=== PATIENT | male | born 1950 | race Hispanic/Latino ===

== ENCOUNTER 2018-01-09 14:48 | Inpatient (IN) | payer OTHER ==
[~2018-01-09] VITALS: Ht 175.3 cm; Wt 91.5 kg
[2018-01-09 16:19] VITALS: BP 156/81
[2018-01-09] MEDS ORDERED: METO50TA18 PO (16:54)
[2018-01-09] MEDS ORDERED: METF10004 PO (16:54)
[2018-01-09] MEDS ORDERED: LOSA100T29 PO (16:54)
[2018-01-09] MEDS ORDERED: INSU100V12 SQ (16:54)
[2018-01-09] MEDS ORDERED: ATOR-2 PO (16:54)
[2018-01-10] VITALS (23 sets, daily range): BP systolic 102–179; BP diastolic 55–85
[2018-01-10 09:39] LABS: APPEARANCE,URINE Clear (CLEAR); BILIRUBIN,URINE Negative (NEGATIVE); COLOR,URINE Yellow (YELLOW); GLUCOSE, URINE (UA) Negative (NEGATIVE); KETONES,URINE Negative (NEGATIVE); LEUKOCYTE ESTERASE ,URINE Negative (NEGATIVE); NITRATE,URINE Negative (NEGATIVE); OCCULT BLOOD,URINE Negative (NEGATIVE); PROTEIN,URINE Negative (NEGATIVE); UROBILINOGEN,URINE 0.2 mg/dL (0.2-1.0)
[2018-01-10 09:39] LABS: BASOPHILS % (AUTO) 0.4 % (0.0-5.0); EOSINOPHILS % (AUTO) 4.5 % (0.0-8.0); HEMATOCRIT 37.7 % (42-54); LYMPHOCYTES % (AUTO) 18.7 % (21.0-51.0); MEAN CORPUSCULAR HEMOGLOBIN 33.6 pg (27.0-33.0); MEAN CORPUSCULAR HGB CONC 35.5 g/dL (32.0-36.0); MEAN CORPUSCULAR VOLUME 94.7 fL (79-99); MONOCYTES % (AUTO) 9.5 % (3.0-13.0); NEUTROPHILS % (AUTO) 66.9 % (40.0-77.0); PLATELET COUNT (AUTO) 104 K/uL (130-400); RED BLOOD CELL COUNT(AUTO) 3.98 MIL/uL (4.50-6.20); RED CELL DISTRIBUTION WIDTH 14.2 % (11.0-15.5); WHITE BLOOD COUNT (AUTO) 5.4 K/uL (4.8-10.8)
[2018-01-10 09:47] LABS: CREATININE 1.5 mg/dL (0.5-1.5)
[2018-01-10 09:49] LABS: INR 1.18 (0.85-1.15); PARTIAL THROMBOPLASTIN TIME 27.9 SEC (26.3-35.5); PROTHROMBIN TIME 12.3 SEC (9.6-11.6)
[2018-01-10] MEDS ORDERED: SODIUM CHLORIDE 0.9% 1000ML 1,000 ML IV ONE (12:51)
[2018-01-10] MEDS: CEFAZOLIN SODIUM 1 GM VIAL ONE ×2 (13:07→15:20)
[2018-01-10] MEDS ORDERED: CELECOXIB 200 MG CAP ONE (13:34)
[2018-01-10] MEDS ORDERED: ACETAMINOPHEN EXTRA STRENGTH 500 MG TABLET ONE (13:34)
[2018-01-10] MEDS ORDERED: OXYCODONE HCL 10 MG TAB.SR.12H PO ONE (13:35)
[2018-01-10] MEDS ORDERED: CEFAZOLIN SODIUM 1 GM VIAL ONE (13:46)
[2018-01-10] MEDS ORDERED: TRANEXAMIC ACID 1000MG/10ML IV ONE (13:46)
[2018-01-10] MEDS ORDERED: VECURONIUM BROMIDE 10 MG ML IV ONE (14:31)
[2018-01-10] MEDS ORDERED: ROPIVACAINE 0.5% 5MG/ML 30ML IJ ONE (14:32)
[2018-01-10] MEDS ORDERED: LIDOCAINE PF 2% 5ML ABBOJECT ONE (14:33)
[2018-01-10] MEDS ORDERED: DEXAMETHASONE SOD PHOSPHATE 10MG/ML 1ML VIAL ONE (14:33)
[2018-01-10] MEDS ORDERED: GLYCOPYRROLATE 0.2 MG/ML 5 ML VIAL ONE (14:33)
[2018-01-10] MEDS ORDERED: MIDAZOLAM HCL 1 MG/ML 2ML VIAL ONE (14:33)
[2018-01-10] MEDS ORDERED: NEOSTIGMINE 5MG/5ML SYR IV ONE (14:33)
[2018-01-10] MEDS ORDERED: PROPOFOL 10 MG/ML 20ML VIAL IV ONE (14:34)
[2018-01-10] MEDS ORDERED: FENTANYL CITRATE PF 50 MCG/1 ML 2ML VIAL ONE ×2 (14:34→15:53)
[2018-01-10] MEDS ORDERED: EPHEDRINE SULFATE 50 MG/ML AMPULE ONE (15:42)
[2018-01-10] MEDS ORDERED: LIDOCAINE HCL-MPF 1% 2ML VIAL IVP PRN (17:45)
[2018-01-10] MEDS ORDERED: TRAMADOL HCL 50 MG TABLET PO PRN (17:45)
[2018-01-10] MEDS ORDERED: PROMETHAZINE HCL 25 MG/ML 1ML AMPULE IM PRN (17:45)
[2018-01-10] MEDS ORDERED: TEMAZEPAM 15 MG CAPSULE PO PRN (17:45)
[2018-01-10] MEDS ORDERED: POTASSIUM CHLORIDE 10% ELIXIR 20 MEQ/15 ML UDCUP PO PRN (17:45)
[2018-01-10] MEDS ORDERED: DIPHENHYDRAMINE HCL 25 MG CAPSULE PO PRN (17:45)
[2018-01-10] MEDS ORDERED: DiphenhydrAMINE HCL 50 MG/ML VIAL IVP PRN (17:45)
[2018-01-10] MEDS ORDERED: CALCIUM CARBONATE 500 MG TABLET PO PRN (17:45)
[2018-01-10] MEDS ORDERED: POTASSIUM CHLORIDE 20MEQ/100ML 100 ML IV PRN (17:45)
[2018-01-10] MEDS ORDERED: POTASSIUM CHLORIDE 20 MEQ ERTAB PO PRN (17:45)
[2018-01-10] MEDS ORDERED: FERROUS FUMARATE 324 MG TABLET PO PRN (17:45)
[2018-01-10] MEDS ORDERED: OXYCODONE HCL 5 MG TAB PO PRN ×2 (17:45)
[2018-01-10] MEDS ORDERED: ONDANSETRON HCL MDV 20ML 2 MG/ML VIAL ONE (18:41)
[2018-01-10] MEDS: CELECOXIB 200 MG CAP PO SCH (20:19)
[2018-01-10] MEDS: ASPIRIN 325 MG TABLET PO SCH (20:19)
[2018-01-10] MEDS: PREGABALIN 75 MG CAPSULE PO SCH (20:19)
[2018-01-10] MEDS: ACETAMINOPHEN 325 MG TAB PO SCH (20:20)
[2018-01-10] MEDS: FAMOTIDINE 20MG TAB 20 MG TAB PO SCH (20:20)
[2018-01-10] MEDS: SODIUM CHLORIDE 0.9% 1000ML 1,000 ML IV SCH (20:21)
[2018-01-10] MEDS: INSULIN HUMULIN R 100 UNIT/ML 3ML SQ SCH (21:16)
[2018-01-10] MEDS: INSULIN GLARGINE 100 UNITS/ML 10 ML VIAL SQ SCH (21:17)
[2018-01-10] MEDS: METOPROLOL TARTRATE 25 MG TAB PO SCH (21:22)
[2018-01-10] MEDS: ATORVASTATIN CALCIUM 40 MG TABLET PO SCH (21:22)
[2018-01-10] MEDS: METFORMIN HCL 500 MG TABLET PO SCH (21:23)
[2018-01-10] MEDS ORDERED: CEFAZOLIN 2GM / 50 ML 50 ML IV SCH (22:45)
[2018-01-10] MEDS: CEFAZOLIN SODIUM 1 GM VIAL IVP SCH (23:43)
[2018-01-11 00:20] VITALS: BP 146/78
[2018-01-11] MEDS: ACETAMINOPHEN 325 MG TAB PO SCH ×5 (01:47→23:05)
[2018-01-11] MEDS: SODIUM CHLORIDE 0.9% 1000ML 1,000 ML IV SCH ×2 (04:34→13:35)
[2018-01-11 05:33] LABS: HEMATOCRIT 31.6 % (42-54); MEAN CORPUSCULAR HEMOGLOBIN 32.8 pg (27.0-33.0); MEAN CORPUSCULAR VOLUME 96.5 fL (79-99); PLATELET COUNT (AUTO) 83 K/uL (130-400); RED BLOOD CELL COUNT(AUTO) 3.27 MIL/uL (4.50-6.20); WHITE BLOOD COUNT (AUTO) 4.5 K/uL (4.8-10.8)
[2018-01-11 05:50] LABS: CREATININE 1.7 mg/dL (0.5-1.5); POTASSIUM 4.5 mmol/L (3.5-5.1)
[2018-01-11] MEDS: CEFAZOLIN SODIUM 1 GM VIAL IVP SCH (06:18)
[2018-01-11] MEDS: INSULIN HUMULIN R 100 UNIT/ML 3ML SQ SCH ×4 (06:25→20:51)
[2018-01-11 07:00] VITALS: BP 131/65
[2018-01-11] MEDS: INSULIN GLARGINE 100 UNITS/ML 10 ML VIAL SQ SCH ×2 (08:11→20:50)
[2018-01-11] MEDS: PREGABALIN 75 MG CAPSULE PO SCH ×2 (08:12→19:44)
[2018-01-11] MEDS: POLYETHYLENE GLYCOL 3350 17 GM POWD.PACK PO SCH ×2 (08:12→08:56)
[2018-01-11] MEDS: METFORMIN HCL 500 MG TABLET PO SCH ×2 (08:12→17:21)
[2018-01-11] MEDS: ASPIRIN 325 MG TABLET PO SCH ×2 (08:13→19:42)
[2018-01-11] MEDS: FAMOTIDINE 20MG TAB 20 MG TAB PO SCH ×2 (08:13→19:42)
[2018-01-11] MEDS: METOPROLOL TARTRATE 25 MG TAB PO SCH ×2 (08:13→19:42)
[2018-01-11] MEDS: LOSARTAN 100 MG TABLET PO SCH (08:13)
[2018-01-11] MEDS: TAMSULOSIN HCL 0.4 MG CAP.ER.24H PO SCH (08:13)
[2018-01-11] MEDS: CELECOXIB 200 MG CAP PO SCH ×2 (08:13→19:42)
[2018-01-11 11:14] VITALS: BP 118/67
[2018-01-11] MEDS ORDERED: PSYLLIUM SEED 1 EACH PACKET PO SCH (12:00)
[2018-01-11 16:36] VITALS: BP 127/64
[2018-01-11] MEDS: ATORVASTATIN CALCIUM 40 MG TABLET PO SCH (19:42)
[2018-01-11 19:51] VITALS: BP 131/63
[2018-01-11 23:38] VITALS: BP 105/62
[2018-01-12 04:00] VITALS: BP 118/66
[2018-01-12] MEDS: ACETAMINOPHEN 325 MG TAB PO SCH ×3 (04:56→16:45)
[2018-01-12] MEDS: INSULIN HUMULIN R 100 UNIT/ML 3ML SQ SCH ×3 (05:47→16:30)
[2018-01-12 06:24] LABS: HEMATOCRIT 30.1 % (42-54); MEAN CORPUSCULAR HEMOGLOBIN 33.2 pg (27.0-33.0); MEAN CORPUSCULAR HGB CONC 34.7 g/dL (32.0-36.0); MEAN CORPUSCULAR VOLUME 95.7 fL (79-99); PLATELET COUNT (AUTO) 84 K/uL (130-400); RED BLOOD CELL COUNT(AUTO) 3.14 MIL/uL (4.50-6.20); WHITE BLOOD COUNT (AUTO) 5.8 K/uL (4.8-10.8)
[2018-01-12 06:31] LABS: CREATININE 1.9 mg/dL (0.5-1.5); POTASSIUM 4.1 mmol/L (3.5-5.1)
[2018-01-12 07:57] VITALS: BP 118/70
[2018-01-12] MEDS: INSULIN GLARGINE 100 UNITS/ML 10 ML VIAL SQ SCH (09:17)
[2018-01-12] MEDS: FAMOTIDINE 20MG TAB 20 MG TAB PO SCH (09:22)
[2018-01-12] MEDS: METFORMIN HCL 500 MG TABLET PO SCH ×2 (09:22→16:45)
[2018-01-12] MEDS: ASPIRIN 325 MG TABLET PO SCH (09:22)
[2018-01-12] MEDS: METOPROLOL TARTRATE 25 MG TAB PO SCH (09:22)
[2018-01-12] MEDS: CELECOXIB 200 MG CAP PO SCH (09:22)
[2018-01-12] MEDS: LOSARTAN 100 MG TABLET PO SCH (09:22)
[2018-01-12] MEDS: TAMSULOSIN HCL 0.4 MG CAP.ER.24H PO SCH (09:22)
[2018-01-12] MEDS: PREGABALIN 75 MG CAPSULE PO SCH (09:22)
[2018-01-12] MEDS ORDERED: HYDR-309 PO (10:46)
[2018-01-12] MEDS ORDERED: ASPI-1012 PO (10:46)
[2018-01-12 11:39] VITALS: BP 131/75
[2018-01-12 16:00] VITALS: BP 113/73
[2018-01-12] MEDS ORDERED: BISACODYL 5 MG TABLET.DR PO PRN (17:45)
[2018-01-13] MEDS ORDERED: BISACODYL 10 MG SUPP.RECT RC PRN (17:45)
== END 2018-01-12 18:10 | disposition home health service (06) | DRG 470 ==
LOC: EDSTATUS 15:00 → DAHIP 01-10 12:25 → 4AH 01-10 18:38
PROVIDERS: ADMIT Orthopaedic Surgery; ATTEND Orthopaedic Surgery
PROC: 0SR90JZ Replacement of Right Hip Joint with Synthetic Substitute, Open Approach (ICD-10-PCS; principal; 2018-01-10 11:00)
DX: M16.11 Unilateral primary osteoarthritis, right hip (principal); Z96.641 Presence of right artificial hip joint; E11.9 Type 2 diabetes mellitus without complications; I10 Essential (primary) hypertension; E78.5 Hyperlipidemia, unspecified; Z98.42 Cataract extraction status, left eye; Z98.41 Cataract extraction status, right eye
CPT/HCPCS: 36415; 73503; 80048; 81003; 82948; 85025; 85027; 85610; 85730; 88304; 88311; A4218; J0690; J1100; J1815; J2001; J2250; J2704; J2710; J2795; J3010; J3490; J7030